=== PATIENT | female | born 2000 | race Caucasian/White ===

== ENCOUNTER 2018-12-16 13:24 | Emergency (ER) | payer OTHER, BC ==
[~2018-12-16] VITALS: Ht 172.7 cm; Wt 89.8 kg
[2018-12-16 13:31] VITALS: Ht 172.7 cm; Wt 89.8 kg
[2018-12-16 14:41] VITALS: BP 115/68
== END 2018-12-16 14:41 | disposition home or self-care (01) ==
LOC: ED 13:24
DX: S63.612A Unspecified sprain of right middle finger, initial encounter (principal); V43.52XA Car driver injured in collision with other type car in traffic accident, initial encounter; Y93.I9 Activity, other involving external motion; Y92.413 State road as the place of occurrence of the external cause; Y99.8 Other external cause status
CPT/HCPCS: Q0092